=== PATIENT | female | born 1970 | race Caucasian/White ===

== ENCOUNTER 2019-07-04 15:20 | Outpatient (CLI) | payer BC, SELFPAY ==
--- NOTE | 2019-07-04 15:28 | MM_ITS ---
WS: [id number] BILATERAL SCREENING DIGITAL MAMMOGRAM WITH CAD HISTORY: SCREENING COMPARISON: 06/12/2018, 07/15/2014, 02/11/2015 and 09/07/2015 Bilateral CC and MLO views submitted. Computer aided detection analyzed. Breast composition: There are scattered areas of fibroglandular density. No suspicious masses, microc alcifications or architectural distortion. Asymmetries in each breast are stable over multiple prior years. MM/[id number] IMPRESSION: BI-RADS: 2-Benign FOLLOW UP: 1 Year Follow-up
== END 2019-07-04 15:21 | disposition home or self-care (01) ==
LOC: RADSHAW 15:25
PROVIDERS: Family Provider Family Medicine; PCP Family Medicine; Visit Provider Family Medicine
DX: Z12.31 Encounter for screening mammogram for malignant neoplasm of breast (principal)
CPT/HCPCS: 77067

== ENCOUNTER 2020-07-31 08:12 | Outpatient (CLI) | payer BC, SELFPAY ==
--- NOTE | 2020-07-31 08:17 | MM_ITS ---
WS: [id number] SCREENING DIGITAL MAMMOGRAM WITH CAD HISTORY: SCREENING COMPARISON: 07/04/2019, 06/12/2018 and 09/07/2015 Bilateral CC and MLO views submitted. Computer aided detection analyzed. Breast composition: There are scattered areas of fibroglandular density. No suspicious masses, microc alcifications or architectural distortion. No change in the fibroglandular pattern since 2016. No mlio picious calcifications or masses. MM/[id number] IMPRESSION: BI-RADS: 1-Negative FOLLOW UP: 1 Year Follow-up
== END 2020-07-31 08:13 | disposition home or self-care (01) ==
LOC: RADSHAW 08:14
PROVIDERS: PCP Family Medicine; Visit Provider Family Medicine
DX: Z12.31 Encounter for screening mammogram for malignant neoplasm of breast (principal)
CPT/HCPCS: 77067

== ENCOUNTER 2021-10-25 07:34 | Outpatient (CLI) | payer BC, SELFPAY ==
--- NOTE | 2021-10-25 07:40 | MM_ITS ---
WS: [id number] BILATERAL SCREENING DIGITAL BREAST TOMOSYNTHESIS MAMMOGRAM WITH CAD HISTORY: SCREENING COMPARISON: 07/31/2020, 07/04/2019, 06/12/2018, 09/07/2015 Bilateral CC and MLO views with tomosynthesis and synthetic mammography submitted. Computer aided det ection analyzed. Breast composition: There are scattered areas of fibroglandular density. No suspicious masses, microc alcifications or architectural distortion. Asymmetry in the upper-outer quadrant of the RIGHT breast is stable. MM/[id number] IMPRESSION: BI-RADS: 2-Benign FOLLOW UP: 1 Year Follow-up
== END 2021-10-25 07:35 | disposition home or self-care (01) ==
LOC: RAD 07:35
PROVIDERS: PCP Family Medicine; Visit Provider Family Medicine
DX: Z12.31 Encounter for screening mammogram for malignant neoplasm of breast (principal)
CPT/HCPCS: 77063; 77067

== ENCOUNTER 2022-10-27 14:43 | Outpatient (CLI) | payer BC, SELFPAY ==
--- NOTE | 2022-10-27 14:48 | MM_ITS ---
WS: [id number] Bilateral screening 3D tomosynthesis digital mammogram, 10/27/2022 Clinical Data: SCREENING Comparison: 10/25/2021, 07/31/2020, 07/04/2019, 06/12/2018, 09/07/2015, 01/11/2015, 07/15/2014, 06/30/2014. Findings: The breast parenchymal pattern shows fibroglandular tissue. No spiculated masses or clustered calcifi cations are seen. There are no secondary signs of carcinoma. MM/[id number] Impression: 1. Negative bilateral mammogram unchanged. 2. Recommend annual screening mammograms. BIRADS: 1-Negative FOLLOW UP: 1 Year Follow-up The CAD package checker was used.
== END 2022-10-27 14:44 | disposition home or self-care (01) ==
LOC: RAD 14:45
PROVIDERS: PCP Family Medicine; Visit Provider Family Medicine
DX: Z12.31 Encounter for screening mammogram for malignant neoplasm of breast (principal)
CPT/HCPCS: 77063; 77067

== ENCOUNTER 2023-01-29 07:45 | Emergency (ER) | payer BC, SELFPAY ==
[2023-01-29 08:00] VITALS: BP 133/87; PULSE 82; RESP 16; TEMP 36.8; O2SAT 96; BMI 35.2
--- NOTE | 2023-01-29 08:15 | W.ED.ABDPA2 ---
HPI - Abdominal Pain General: Chief Complaint: Abdominal Pain Stated Complaint: abd pain, bloody stool Time Seen by Provider: 01/29/23 07:51 Source: patient Mode of arrival: ambulatory Limitations: no limitations History of Present Illness: 52-year-old female states that over the last 2 days she had abdominal cramping along with severe diarrhea. States she had some slight blood in her stools along with foul-smelling stools. She has had some nausea denies any vomiting denies any fevers. States she has had colitis in the past and this is very similar. Associated Symptoms: Reports diarrhea and nausea; Denies chills, dysuria, fever(s) and vomiting Review of Systems Const: Denies: fever(s), chills, body aches or change in appetite ENMT: Denies: throat pain or dental pain Card: Denies: chest pain Resp: Denies: dyspnea GI: Reports: abdominal pain, nausea and diarrhea; Denies: vomiting : Denies: dysuria Musc: Denies: neck pain or back pain Skin/Breast: Denies: rash Neuro: Denies: headache(s) Physical Exam Const: COMMON NORMALS: no acute distress, patient oriented x3 and healthy appearing HENMT: COMMON NORMALS: normocephalic and atraumatic HEAD & SCALP: normocephalic and atraumatic Eye: COMMON NORMALS: Equal, round and reactive pupils present and EOMs intact bilaterally PUPIL: Yes Equal, round and reactive pupils present Neck/C-Spine: COMMON NORMALS: full ROM and supple Chest: COMMONS NORMALS: normal inspection of the chest and normal palpation of entire chest wall Resp: COMMON NORMALS: normal respiratory effort, No retractions, No use of accessory muscles and clear to auscultation bilaterally AUSCULTATION: clear to auscultation bilaterally Cardio: COMMON NORMALS: regular rate, regular rhythm and No murmurs present (Cardio) RATE: regular rate RHYTHM: regular rhythm GI: COMMON NORMALS: Normal to inspection, nondistended, normoactive bowel sounds present, Soft to palpation, non-tender and no masses PALPATION: Yes Soft to palpation Extremity: COMMON NORMALS: normal to inspection and full ROM Neuro: COMMON NORMALS: patient oriented x3, moves all extremities and no focal motor deficits Psych: COMMON NORMALS: mental status grossly normal, Normal thought process present and cooperative THOUGHT PROCESS: Normal thought process present Skin: COMMON NORMALS: no rashes or lesions noted and no wounds GENERAL SKIN EXAM: no rashes or lesions noted Course Vital Signs: Vital signs: Vital Signs Temperature 98.2 F 01/29/23 08:00 Pulse Rate 96 01/29/23 09:42 Respiratory Rate 16 01/29/23 08:44 Blood Pressure 133/87 01/29/23 08:51 Pulse Oximetry 97 01/29/23 09:42 Oxygen Delivery Me thod Room Air 01/29/23 09:42 MDM - Abdominal Pain Medical Decision Making Patient presents here diarrhea along with abdominal cramping she likely has a colitis her blood work here is normal no signs of CDF we will start her on Cipro Flagyl she is to follow-up with PCP and return if worsening I did inform her not to drink any alcohol while taking the Flagyl she understands agrees to plan she is return if worsening Medical Records I reviewed the patient's medical records. Lab Data I reviewed the patient's lab results. 01/29/23 08:09 01/29/23 08:09 Labs/Radiology: Laboratory Results WBC 9.59 10^3/uL (3.29-11.43) 01/29/23 08:09 RBC 5.03 10^6/uL (3.85-5.65) 01/29/23 08:09 Hgb 16.00 g/dL (11.27-16.99) 01/29/23 08:09 Hct 48.6 % (36-47) H 01/29/23 08:09 MCV 96.6 fl (85-98) 01/29/23 08:09 MCH 31.8 pg (27-33) 01/29/23 08:09 MCHC 32.9 g/dL (30-55) 01/29/23 08:09 RDW 13.2 % (12.1-15.1) 01/29/23 08:09 Plt Count 172 10^3/cmm (157-399) 01/29/23 08:09 MPV 12.0 fL (7.4-10.4) H 01/29/23 08:09 Neut % (Auto) 80.0 % 01/29/23 08:09 Lymph % (Auto) 10.7 % 01/29/23 08:09 [place] % (Auto) 7.0 % 01/29/23 08:09 Eos % (Auto) 1.6 % 01/29/23 08:09 Baso % (Auto) 0.5 % 01/29/23 08:09 Neut # (Auto) 7.67 10^3/uL (1.8-7.7) 01/29/23 08:09 Lymph # (Auto) 1.0 10^3/uL (0.8-4.8) 01/29/23 08:09 [place] # (Auto) 0.7 10^3/uL (0.2-0.9) 01/29/23 08:09 Eos # (Auto) 0.2 10^3/uL (0.0-0.8) 01/29/23 08:09 Baso # (Auto) 0.1 10^3/uL (0.0-0.1) 01/29/23 08:09 Nucleated RBC % (auto) 0 % 01/29/23 08:09 Nucleated RBCs # 0.0 /100WBC 01/29/23 08:09 PT 12.90 SECONDS (12.1-14.9) 01/29/23 08:09 INR 0.95 (0.8-1.2) 01/29/23 08:09 Sodium 141 mmol/L (136-145) 01/29/23 08:09 Potassium 4.0 mmol/L (3.5-5.1) 01/29/23 08:09 Chloride 107 mmol/L (98-107) 01/29/23 08:09 Carbon Dioxide 23 mmol/L (22-29) 01/29/23 08:09 Anion Gap 15.0 (5-19) 01/29/23 08:09 BUN 7 mg/dL (6-20) 01/29/23 08:09 Creatinine 0.7 mg/dL (0.5-0.9) 01/29/23 08:09 GFR Calculation 88.2 mL/min (90-130) L 01/29/23 08:09 Glucose 109 mg/dL (65-115) 01/29/23 08:09 Calculated Osmolality 291 mOsm/kg (285-295) 01/29/23 08:09 Calcium 9.0 mg/dL (8.5-10.5) 01/29/23 08:09 Total Bilirubin 0.3 mg/dL (0.15-1.2) 01/29/23 08:09 AST 23 U/L (0-32) 01/29/23 08:09 ALT 33 U/L (0-33) 01/29/23 08:09 Alkaline Phosphatase 113 U/L (35-105) H 01/29/23 08:09 Total Protein 7.2 g/dL (6.6-8.7) 01/29/23 08:09 Albumin 4.2 g/dL (3.5-5.2) 01/29/23 08:09 Globulin 3.0 g/dL (1.3-4.6) 01/29/23 08:09 Lipase 21 U/L (13-60) 01/29/23 08:09 Discharge Plan Discharge Patient Disposition: Home Clinical Impression: Abdominal pain, Diarrhea Condition: Stable Prescriptions: New hydrocodone-acetaminophen 5-325 mg tablet 1 tab PO Q6H PRN (Reason: pain) Qty: 14 0RF metronidazole 500 mg tablet 500 mg PO Q8H 7 Days Qty: 21 0RF Cipro 500 mg tablet 500 mg PO BID Qty: 14 0RF ondansetron 4 mg tablet,disintegrating 4 mg PO Q6H PRN (Reason: nausea and vomiting) Qty: 14 0RF No Action Multi-Vitamins Tablet 1 tab PO DAILY ibuprofen 200 mg Tablet 200 mg PO Q6H PRN (Reason: Pain) Discharge Orders: Discharge ED (Routine); Ordered 01/29/23 Ordered By: Piyush Rousseau Referrals: Connie Leigh MD [Primary Care Provider] - 1-3 days Discharge Diet: Advance as tolerated Discharge Activity: Resume usual activity Patient Instructions: Acute Diarrhea (ED), Abdominal Pain (ED), Opioid Safety Coding Level of Care Code ED Pharmacy Specialist for Beth Curran
[2023-01-29] MEDS: diphenoxylate/atropine Tablet 1 TAB PO (08:42)
[2023-01-29] MEDS: ondansetron 2 mg/ML SDV 2 mL 4 MG IVP (08:43)
[2023-01-29 08:44] VITALS: RESP 16; O2SAT 97
[2023-01-29] MEDS: morphine 4 mg/mL SDV 1 mL IVP (08:44)
[2023-01-29] MEDS: sodium chloride 0.9% 1,000 ML 999 ML IV (08:45)
[2023-01-29 08:51] VITALS: BP 133/87; PULSE 85; O2SAT 96
[2023-01-29 08:59] LABS: Basophils # 0.1 10^3/uL (0.0-0.1); Basophils % 0.5 %; Eosinophils # 0.2 10^3/uL (0.0-0.8); Eosinophils % 1.6 %; Hematocrit 48.6 % (36-47); Lymphocytes % 10.7 %; Mean Corpuscular HGB Conc 32.9 g/dL (30-55); Mean Corpuscular Hemoglobin 31.8 pg (27-33); Mean Corpuscular Volume 96.6 fl (85-98); Monocytes # 0.7 10^3/uL (0.2-0.9); Neutrophils # 7.67 10^3/uL (1.8-7.7); Nucleated Red Blood Cells % 0 %; Platelet Count 172 10^3/cmm (157-399); Red Blood Count 5.03 10^6/uL (3.85-5.65); Red Cell Distribution Width 13.2 % (12.1-15.1); White Blood Count 9.59 10^3/uL (3.29-11.43)
[2023-01-29 09:03] LABS: INR 0.95 (0.8-1.2)
[2023-01-29 09:16] LABS: Alanine Aminotransferase 33 U/L (0-33); Albumin Level 4.2 g/dL (3.5-5.2); Alkaline Phosphatase 113 U/L (35-105); Aspartate Amino Transferase 23 U/L (0-32); Blood Urea Nitrogen 7 mg/dL (6-20); Carbon Dioxide 23 mmol/L (22-29); Chloride 107 mmol/L (98-107); Glomerular Filtration Rate 88.2 mL/min (90-130); Glucose 109 mg/dL (65-115); Lipase 21 U/L (13-60); Osmolality Calculated 291 mOsm/kg (285-295); Sodium 141 mmol/L (136-145); Total Bilirubin 0.3 mg/dL (0.15-1.2); Total Protein 7.2 g/dL (6.6-8.7)
[2023-01-29 09:42] VITALS: PULSE 96; O2SAT 97
[2023-01-29 09:57] LABS: Add Urine Microscopic? YES; Bilirubin Urine Neg (Negative); Blood Urine 2+ (Negative); Glucose Urine UA Norm (Normal); Ketones Urine Negative (Negative); Leukocyte Esterase Urine Negative (Negative); Nitrate Urine Negative (Negative); Protein Urine Neg (Negative); RBC Urine RARE /hpf (0-2); Squamous Epithelial Cell Urine 0-4 /hpf (0-5); Urine Appearance Clear (CLEAR); Urine Color Straw (Yellow); Urobilinogen Urine Norm (Negative); WBC Urine 0-4 /hpf (0-5); pH Urine 5 (5-7)
[2023-01-29 09:58] LABS: Add Urine Culture? No; Bacteria Urine TRACE /hpf
--- NOTE | 2023-01-29 13:48 | PC.NURSE ---
Discharged with 500ML fluids left to infuse. Physician MICHAEL'noemi.
== END 2023-01-29 10:07 | disposition home or self-care (01) ==
PROVIDERS: Emergency Provider Emergency Medicine; PCP Family Medicine
DX: R19.7 Diarrhea, unspecified (principal)
CPT/HCPCS: 80053; 81001; 83690; 85025; 85610; 96374; 96375; 99284; J2270; J2405; J7030

== ENCOUNTER 2023-02-28 14:38 | Outpatient (CLI) | payer BC, SELFPAY ==
--- NOTE | 2023-02-28 14:45 | CT_ITS ---
WS: [id number] LDCT LUNG CANCER SCREENING HISTORY: screening TECHNIQUE: Axial imaging performed from the apices to 1 cm below the costophrenic angles. Coronal and sagittal reformats are submitted with axial MIP series. All CT scans at [facility] use at least one of these dose optimization techniques: automated exposure control; mA and/or kV adjustment per patient size (includes targeted exams where dose is matched to clinical indication); or iterativ e reconstruction. DLP: 80.32 mGy.cm DIvol: Mean CTDIvol: 1.80 (mGy) COMPARISON: None available. Diagnostic quality: Satisfactory Lungs: No pulmonary mass, nodule or endobronchial lesions. Heart: Normal size heart with no pericardial effusion.. Other findings: No mediastinal or hilar adenopathy. Normal aorta. Normal sized pulmonary artery. Norm al adrenal glands. IMPRESSION: CT/CT lung screening [id number] LUNG-RADS: 1-Negative FOLLOW UP: 12 Month: Continue annual screening with LDCT OTHER FINDINGS (S MODIFIER): None.
== END 2023-02-28 14:39 | disposition home or self-care (01) ==
LOC: RAD 14:40
PROVIDERS: PCP Family Medicine; Visit Provider Family Medicine
DX: Z12.2 Encounter for screening for malignant neoplasm of respiratory organs (principal); F17.219 Nicotine dependence, cigarettes, with unspecified nicotine-induced disorders
CPT/HCPCS: 71271

== ENCOUNTER 2023-04-05 07:30 | Day surgery (SDC) | payer BC, SELFPAY ==
[2023-04-05 07:44] VITALS: BP 140/75; PULSE 101; RESP 16; TEMP 36.4; O2SAT 97; BMI 35.2
[2023-04-05] MEDS: sodium chloride 0.9% 1,000 ML 30 ML IV (07:47)
--- NOTE | 2023-04-05 07:55 | ANES.PREANE2 ---
Pre-Anesthetic Assessment Height/Weight: Height 1.52 m Weight 81.647 kg Temp Pulse Resp BP Pulse Ox O2 Del Method 97.5 F L 101 H 16 140/75 97 Room Air 04/05/23 07:44 04/05/23 07:44 04/05/23 07:44 04/05/23 07:44 04/05/23 07:44 04/05/23 07:44 Operation Date: 04/05/23 08:30 Proposed Procedures p [id number] Colonoscopy,[id number] encounter for screening colonoscopy(Not Applicable) - Gurvinder Marinelli DO Familial anesthetic complications: None Was Beta Ryan taken within 24 hours: N/A Was Clonidine taken within 24 hours: N/A Last intake: Intake Last Liquid Date 04/04/23 Last Liquid Time 21:30 Last Solid Date 04/03/23 Last Solid Time 19:00 Social No alcohol and No tobacco prior per chart Exam alert, oriented x 3, clear to auscultation bilaterally and regular rate & rhythm Airway Mallampati: Class I Dentition: other (missing) Metabolic Morbid Obesity Anesthetic Plan ASA status: 2 Anesthesia: MAC Risk of > 500 ml blood loss (7ml/kg in children): No Medications/Allergies Home Medications Medication Instructions Recorded Confirmed Last Taken Type latanoprost 0.005 % eye drops 2 drp ophthalmic (eye) PRN PRN Dry 04/03/23 04/05/23 04/04/23 History Eye(S) Allergies Allergy/AdvReac Type Severity Reaction Status Date / Time No Known Allergies Allergy Verified 02/28/23 15:32 Current Medications Generic Name Dose Route Start Last Admin Trade Name Freq PRN Reason Stop Dose Admin Sodium Chloride 1,000 mls @ 30 mls/hr 04/05/23 07:45 04/05/23 07:47 Sodium Chloride 0.9% IV 04/06/23 07:44 30 mls/hr .Q24H JAYCEE Administration PFSH Anesthesia Medical History History of colitis Hypercholesteremia Surgical History History of History of colonoscopy 2011 Family History Other Dementia Hyperlipidemia Denies family history of Diabetes CAD (coronary artery disease) Clotting disorder Psychiatric illness Chronic kidney disease (CKD) Anesthesia complication Bleeding disorder Lung disease Cancer Hypertension Stroke Social History Smoking and tobacco/nicotine status: current every day tobacco/nicotine user cigarettes Packs smoked per day: 0.5 Alcohol intake: current Alcohol intake frequency: 0-2 Drinks per Day Substance/Drug Use: never Lives independently: Yes Marital status: Number of children: 1 Current occupational status: employed Current occupation: [employer] Annie/Church: [employer] Special annie needs: No Agree to transfusion: Yes Data Anesthesia Cardiac Studies: No Data to Display
--- NOTE | 2023-04-05 09:49 | P.HP_ITS ---
Providers/Chief Complaint Primary Care Provider: Rick Russ MD Chief Complaint: Z12.11 History of Present Illness Edith Correa is a 52 year old female Review of Systems General: Reports: 10 or more systems reviewed and unremarkable except in HPI and below Medications/Allergies Home Medications Medication Instructions Recorded Confirmed Last Taken Type latanoprost 0.005 % eye drops 2 drp ophthalmic (eye) PRN PRN Dry 04/03/23 04/05/23 04/04/23 History Eye(S) Allergies Allergy/AdvReac Type Severity Reaction Status Date / Time No Known Allergies Allergy Verified 02/28/23 15:32 PFSH Acute PFSH: Medical History History of colitis Hypercholesteremia Surgical History History of History of colonoscopy 2011 Family History Other Dementia Hyperlipidemia Denies family history of Diabetes CAD (coronary artery disease) Clotting disorder Psychiatric illness Chronic kidney disease (CKD) Anesthesia complication Bleeding disorder Lung disease Cancer Hypertension Stroke Social History Smoking and tobacco/nicotine status: current every day tobacco/nicotine user cigarettes Packs smoked per day: 0.5 Alcohol intake: current Alcohol intake frequency: 0-2 Drinks per Day Substance/Drug Use: never Lives independently: Yes Marital status: Number of children: 1 Current occupational status: employed Current occupation: [employer] Annie/Anabaptism: [employer] Special annie needs: No Agree to transfusion: Yes Vitals/I&O/Wt Last Vital Signs Temp 97.5 F L 04/05/23 07:44 Pulse 101 H 04/05/23 07:44 Resp 16 04/05/23 07:44 BP 140/75 04/05/23 07:44 Pulse Ox 97 04/05/23 07:44 O2 Del Method Room Air 04/05/23 07:44 Weight last 48 hrs Weight 180 lb A&P Assessment and plan (1) Encounter for screening for malignant neoplasm of colon: Plan Colonoscopy Attestations Medical Necessity Statement*: Home Coding Level of Care Code Acute Code for Chg Fwd Diagnoses Encounter for screening for malignant neoplasm of colon Z12.11
[2023-04-05 10:13] VITALS: BP 100/82; PULSE 79; RESP 16; TEMP 36.3; O2SAT 97
[2023-04-05 10:35] VITALS: BP 118/74; PULSE 70; RESP 18; O2SAT 98
--- NOTE | 2023-04-05 10:45 | ANE.PACU2 ---
Inpatient post-anesthesia follow up: Airway intact: Yes Vital signs: Temperature 97.3 F Pulse Rate 70 Respiratory Rate 18 Blood Pressure 118/74 Pulse Oximetry 98 Oxygen Delivery Me thod Room Air Oxygen Flow Rate Fraction of Inspir ed Oxygen Hydration adequate: Yes Nausea and vomiting: No Pain level: 1 Mental status: Baseline
== END 2023-04-05 10:41 | disposition home or self-care (01) ==
PROVIDERS: PCP Family Medicine; Visit Provider Surgery
PROC: 0DJD8ZZ Inspection of Lower Intestinal Tract, Via Natural or Artificial Opening Endoscopic (ICD-10-PCS; CPT 45378; principal; 2023-04-05 08:30)
DX: Z12.11 Encounter for screening for malignant neoplasm of colon (principal); K57.30 Diverticulosis of large intestine without perforation or abscess without bleeding; K63.5 Polyp of colon; E66.01 Morbid (severe) obesity due to excess calories; Z68.35 Body mass index [BMI] 35.0-35.9, adult; F17.210 Nicotine dependence, cigarettes, uncomplicated
CPT/HCPCS: 45385; 88305; J2704; J7030

== ENCOUNTER 2023-11-17 14:33 | Outpatient (CLI) | payer BC, SELFPAY ==
--- NOTE | 2023-11-17 14:39 | MM_ITS ---
WS: [id number] VIEWS: MLO and CC views both breasts. 3D digital tomosynthesis is also included in this exam. Comparison made with prior exam of 06/30/2014, 09/07/2015, 06/12/2018, 07/04/2019, 07/31/2020, 10/25/2021, 10/27/2022.. Findings: There was no sign of mass, architectural distortion or suspicious calcification in either breast. The re are scattered areas of fibroglandular density MM/[id number] Impression: BI-RADS: 1-Negative FOLLOW-UP: 1 Year Follow-up This mammogram was also analyzed by the Computer Aided Detection System R2 Imag e Visual Inspector.
== END 2023-11-17 14:34 | disposition home or self-care (01) ==
LOC: RAD 14:34
PROVIDERS: PCP Family Medicine; Visit Provider Family Medicine
DX: Z12.31 Encounter for screening mammogram for malignant neoplasm of breast (principal)
CPT/HCPCS: 77063; 77067

== ENCOUNTER → 2024-07-19 08:43 | Outpatient (BNVA) | payer BC, SELFPAY | PROVIDERS: PCP Family Medicine; Visit Provider Family Medicine | DX: Z13.6 Encounter for screening for cardiovascular disorders (principal) | CPT/HCPCS: 80053; 80061; 84439; 84443; 85025 ==

== ENCOUNTER 2024-08-08 08:34 | Outpatient (CLI) | payer BC, SELFPAY ==
--- NOTE | 2024-08-08 09:00 | CT_ITS ---
WS: [id number] LDCT LUNG CANCER SCREENING HISTORY: screening TECHNIQUE: Axial imaging performed from the apices to 1 cm below the costophrenic angles. Coronal and sagittal reformats are submitted with axial MIP series. All CT scans at [facility] use at least one of these dose optimization techniques: automated exposure control; mA and/or kV adjustment per patient size (includes targeted exams where dose is matched to clinical indication); or iterative reconstruction. DLP: 69.21 mGy.cm DIvol: Mean CTDIvol: 1.60 (mGy) COMPARISON: 02/28/2023 Diagnostic quality: Satisfactory Lungs: Well aerated lungs. No pulmonary nodule, mass or endobronchial lesion. No pneumonia. Heart: Normal size heart with no pericardial effusion.. Other findings: Normal aorta and pulmonary artery. No adenopathy identified. Normal adrenal glands. CT/CT lung screening [id number] IMPRESSION: LUNG-RADS: 1-Negative FOLLOW UP: 12 Month: Continue annual screening with LDCT OTHER FINDINGS (S MODIFIER): None.
== END 2024-08-08 08:35 | disposition home or self-care (01) ==
LOC: RAD 08:36
PROVIDERS: PCP Family Medicine; Visit Provider Family Medicine
DX: Z12.2 Encounter for screening for malignant neoplasm of respiratory organs (principal); F17.219 Nicotine dependence, cigarettes, with unspecified nicotine-induced disorders
CPT/HCPCS: 71271

== ENCOUNTER → 2024-10-28 10:03 | Outpatient (BNVA) | payer BC, SELFPAY | PROVIDERS: PCP Family Medicine; Visit Provider Family Medicine | DX: Z12.4 Encounter for screening for malignant neoplasm of cervix (principal) | CPT/HCPCS: 87624 ==